=== PATIENT | male | born 1960 | race Caucasian/White ===

== ENCOUNTER 2020-01-19 02:15 | Emergency (ER) | payer OTHER ==
[2020-01-19] MEDS ORDERED: Ondansetron 4 MG Tab.DIS PO ONE (02:17)
[2020-01-19] MEDS ORDERED: Ketorolac 60 MG/2 ML SDV IM ONE (02:18)
[2020-01-19] MEDS ORDERED: Acetaminophen/oxyCODONE 325-5 MG Tab PO STA (02:25)
--- NOTE | 2020-01-19 02:37 | EDM.PDOC ---
ED HPI GENERAL MEDICAL PROBLEM - General Chief Complaint: Genitourinary Problem Stated Complaint: KIDNEY STONES Time Seen by Provider: 01/19/20 02:20 Source of Information: Reports: Patient, Family, RN History Limitations: Reports: No Limitations - History of Present Illness INITIAL COMMENTS - FREE TEXT/NARRATIVE: 60 yo male with a remote hx of kidney stones presents with L flank pain that awakened him from sleep about 2 hrs ago. No fever. Has nausea without vomiting. Feels like kidney stones he's had in the past. Onset: Today, Sudden Onset Date: 01/19/20 Onset Time: 00:30 Duration: Hour(s): (2), Constant Location: Reports: Back (L flank) Quality: Reports: Stabbing Severity: Severe Improves with: Reports: None Worsens with: Reports: Other (unknown) Context: Reports: Other (See HPI) Associated Symptoms: Reports: Diaphoresis, Nausea/Vomiting. Denies: Fever/ Chills, Rash, Shortness of Breath Treatments RN ORTHOPEDIC: Reports: Other (see below) (none) left lower back Pain Score (Numeric/FACES): 8 - Related Data Allergies Allergy/AdvReac Type Severity Reaction Status Date / Time No Known Allergies Allergy Verified 01/19/20 02:16 Home Meds: Home Meds NK [No Known Home Meds] 01/19/20 [History] Past Medical History Gastrointestinal History: Reports: Other (See Below) Other Gastrointestinal History: acid reflux Genitourinary History: Reports: Renal Calculus - Infectious Disease History Infectious Disease History: Reports: Chicken Pox, Measles - Past Surgical History HEENT Surgical History: Reports: Oral Surgery, Tonsillectomy GI Surgical History: Reports: Appendectomy, Hernia Repair/Other Social & Family History - Tobacco Use Smoking Status *Q: Never Smoker - Caffeine Use Caffeine Use: Reports: Coffee - Recreational Drug Use Recreational Drug Use: No ED ROS GENERAL - Review of Systems Review Of Systems: See Below Constitutional: Reports: No Symptoms HEENT: Reports: No Symptoms Respiratory: Reports: No Symptoms Cardiovascular: Reports: No Symptoms GI/Abdominal: Reports: Nausea. Denies: Black Stool, Bloody Stool, Constipation , Diarrhea, Distension, Hematemesis, Hematochezia, Melena, Vomiting : Reports: Flank Pain (left). Denies: Dysuria, Hematuria, Urgency Skin: Reports: Diaphoresis (when pain and nausea were at their worst.) Neurological: Reports: No Symptoms Psychiatric: Reports: No Symptoms ED EXAM, RENAL/ - Physical Exam Exam: See Below Exam Limited By: No Limitations General Appearance: Alert, WD/WN, No Apparent Distress Eye Exam: Bilateral Eye: Normal Inspection Ears: Normal External Exam, Normal Canal, Hearing Grossly Normal Nose: Normal Inspection, No Blood Throat/Mouth: Normal Inspection, Normal Lips, Normal Voice, No Airway Compromise Head: Atraumatic, Normocephalic Neck: Normal Inspection Respiratory/Chest: No Respiratory Distress, Lungs Clear, Normal Breath Sounds, No Accessory Muscle Use Cardiovascular: Regular Rate, Rhythm, No Edema GI/Abdominal: Soft, Non-Tender, No Distention Back Exam: No: CVA Tenderness (R), CVA Tenderness (L) Extremities: Normal Inspection, Normal Range of Motion, Non-Tender, No Pedal Edema Neurological: Alert, Oriented, CN II-XII Intact, Normal Cognition, No Motor/ Sensory Deficits Psychiatric: Normal Affect, Normal Mood Skin Exam: Warm, Dry, Intact, Normal Color, No Rash Course - Vital Signs Last Recorded V/S: Last Vital Signs Temp 36.0 C L 01/19/20 02:20 Pulse 89 01/19/20 02:20 Resp 20 01/19/20 02:20 BP 128/72 01/19/20 02:20 Pulse Ox 98 01/19/20 02:20 - Orders/Labs/Meds Labs: Laboratory Tests 01/19/20 Range/Units 03:00 Urine Color Yellow (YELLOW) Urine Appearance Clear (CLEAR) Urine pH 6.0 (5.0-8.0) Ur Specific [place] 1.025 (1.008-1.030) Urine Protein Negative (NEGATIVE) mg/dL Urine Glucose (UA) Negative (NEGATIVE) mg/dL Urine Ketones Negative (NEGATIVE) mg/dL Urine Occult Blood Large H (NEGATIVE) Urine Nitrite Negative (NEGATIVE) Urine Bilirubin Negative (NEGATIVE) Urine Urobilinogen 0.2 (0.2-1.0) EU/dL Ur Leukocyte Esterase Negative (NEGATIVE) Urine RBC 40-50 H (0-5) Urine WBC 0-5 (0-5) Ur Epithelial Cells Few Amorphous Sediment Not seen Urine Bacteria Few Urine Mucus Not seen Meds: Medications Discontinued Medications Generic Name Dose Route Start Last Admin Trade Name Freq PRN Reason Stop Dose Admin Ketorolac Tromethamine 60 mg 01/19/20 02:18 01/19/20 02:27 Toradol IM 01/19/20 02:19 60 mg ONETIME ONE Administration Ondansetron HCl 4 mg 01/19/20 02:17 01/19/20 02:27 Zofran Odt PO 01/19/20 02:18 4 mg ONETIME ONE Administration Oxycodone/Acetaminophen 2 tab 01/19/20 02:25 01/19/20 02:32 Percocet 325-5 Mg PO 01/19/20 02:26 2 tab ONETIME STA Administration - Radiology Interpretation Free Text/Narrative:: Abd/pelvis CT without contrast- 3mm stone now in the bladder with some residual L hydroureter. CT Results Date: 01/19/20 CT Results Time: : Departure - Departure Time of Disposition: 03:30 Disposition: Home, Self-Care 01 Condition: Good Clinical Impression: Left renal stone - Discharge Information *PRESCRIPTION DRUG MONITORING PROGRAM REVIEWED*: Not Applicable *COPY OF PRESCRIPTION DRUG MONITORING REPORT IN PATIENT ASHELY: Not Applicable Instructions: Kidney Stones, [id number] Referrals: PCP,None [Primary Care Provider] - Forms: ED Department Discharge Additional Instructions: strain urine and save stone when you pass it. Drink more fluids your your urine is light yellow in color. F/U with your provider as needed. Sepsis Event Note - Evaluation Sepsis Screening Result: No Definite Risk - Focused Exam Vital Signs: Vital Signs Temp Pulse Resp BP Pulse Ox 01/19/20 02:20 36.0 C L 89 20 128/72 98 01/19/20 02:18 36.0 C L 89 20 128/72 98 Date Exam was Performed: 01/19/20 Time Exam was Performed: 03:29
--- NOTE | 2020-01-19 03:15 | CRLCT ---
INDICATION: Left flank abdominal pain. History of left sided stone TECHNIQUE: CT Abdomen and pelvis without i.v. contrast. Coronal and sagittal reformats were obtained. COMPARISON: 05/02/2020 FINDINGS: Lower chest: Mild bibasilar linear scarring is seen. Liver: Unremarkable. Spleen: Unremarkable. Pancreas: Unremarkable. Gallbladder: Unremarkable. Kidney: There is a 3 mm stone present in the posterior dependent bladder with mild left hydroureter seen. Adrenal: Unremarkable. Bowel: Unremarkable. Previous appendectomy noted with no significant appendiceal stump identified. Vascular: Unremarkable. Lymph: Unremarkable. Peritoneum: Unremarkable. No pneumoperitoneum is seen. No significant ascites is noted. Pelvis: See above. Soft tissue: Unremarkable. Bone: Unremarkable for age. IMPRESSION: 1. There is a 3 mm stone present in the posterior dependent bladder with mild left hydroureter seen. Findings most likely due to a recently passed stone via the left ureter. Dictated by Adam Teague MD @ 01/19/2020 3:13:32 AM Please note that all CT scans at this facility use dose modulation, iterative reconstruction, and/or weight-based dosing when appropriate to reduce radiation dose to as low as reasonably achievable. Dictated by: Adam Teague MD @ 01/19/2020 03:13:37 (Electronically Signed)
== END 2020-01-19 03:47 | disposition home or self-care (01) ==
LOC: JP.ED 02:15
DX: N21.0 Calculus in bladder (principal); N13.4 Hydroureter; Z87.442 Personal history of urinary calculi
CPT/HCPCS: 74176; 81001; 96372; 99284; A9270; J1885